=== PATIENT | male | born 1985 | race Two or more races ===

== ENCOUNTER 2023-02-25 01:35 | Emergency (ER) | payer OTHER ==
[~2023-02-25] VITALS: Ht 172.7 cm; Wt 72.6 kg
[2023-02-25] MEDS ORDERED: CEPHALEXIN500 MG PO (03:22)
[2023-02-25] MEDS ORDERED: KETO10TA2 PO (03:22)
[2023-02-25] MEDS ORDERED: CORTISPORIN EAR10 M1 OPHT (03:22)
== END 2023-02-25 03:34 | disposition home or self-care (01) ==
LOC: ER 01:36
DX: H60.8X9 Other otitis externa, unspecified ear (principal)
CPT/HCPCS: 96372; 99284; J0696